=== PATIENT | female | born 1940 | race Caucasian/White ===

== ENCOUNTER 2018-01-14 02:08 | Outpatient (CLI) | payer MEDICARE, SELFPAY ==
[2018-01-14 11:34] LABS: ALT 18 U/L (12-78); AST 12 U/L (15-37); Albumin 3.8 g/dL (3.4-5.0); Alkaline Phosphatase 78 U/L (46-116); Anion Gap 8.4 mmol/L (3-11); BUN 42 mg/dL (7-18); Bilirubin, Total 0.4 mg/dL (0.2-1.0); CO2 29.6 mmol/L (21.0-32.0); CREATININE 1.97 mg/dL (0.55-1.02); Calcium 9.3 mg/dL (8.5-10.1); Chloride 104 mmol/L (98-107); Cholesterol 272 mg/dL (50-200); Estimated GFR 24.58 (mL/min/1.73m2); Glucose 96 mg/dL (70-100); HDL Cholesterol 96 mg/dL (40-60); LDL CHOLESTEROL 162 mg/dL (<100); Potassium 4.6 mmol/L (3.5-5.1); Sodium 142 mmol/L (136-145); Total Protein 7.1 g/dL (6.4-8.2); Triglyceride 51 mg/dL (30-150)
[2018-01-14 11:42] LABS: COMMENT (LAB VIEW ONLY) 42.44 mg/dL; Microalb ug/mg Crea 17.7 ug/mg Cr
[2018-01-14 12:06] LABS: PROTEIN < 6.0 mg/dL
[2018-01-14 12:07] LABS: COMMENT (LAB VIEW ONLY) 42.03 mg/dL
== END 2018-01-14 02:28 ==
PROVIDERS: PCP Nurse Practitioner Family; Visit Provider Nurse Practitioner Family
DX: I10 Essential (primary) hypertension (principal); N19 Unspecified kidney failure
CPT/HCPCS: 36415; 80053; 80061; 83721; 82043; 82565; 82570; 84156

== ENCOUNTER 2018-07-12 01:37 | Outpatient (CLI) | payer MEDICARE, OTHER, SELFPAY ==
[2018-07-12 11:24] LABS: ALT 18 U/L (12-78); AST 16 U/L (15-37); Albumin 3.8 g/dL (3.4-5.0); Alkaline Phosphatase 77 U/L (46-116); Anion Gap 12.1 mmol/L (3-11); BUN 42 mg/dL (7-18); Bilirubin, Total 0.4 mg/dL (0.2-1.0); CO2 24.9 mmol/L (21.0-32.0); Calcium 9.6 mg/dL (8.5-10.1); Chloride 106 mmol/L (98-107); Cholesterol 293 mg/dL (50-200); Estimated GFR 24.16 (mL/min/1.73m2); Glucose 106 mg/dL (70-100); HDL Cholesterol 96 mg/dL (40-60); LDL CHOLESTEROL 170 mg/dL (<100); Potassium 4.7 mmol/L (3.5-5.1); Sodium 143 mmol/L (136-145); TSH (W/Ref FT4) 2.69 uIU/mL (0.358-3.74); Total Protein 7.1 g/dL (6.4-8.2); Triglyceride 71 mg/dL (30-150)
== END 2018-07-12 01:57 ==
PROVIDERS: PCP Nurse Practitioner Family; Visit Provider Nurse Practitioner Family
DX: E03.9 Hypothyroidism, unspecified (principal); I10 Essential (primary) hypertension; E78.5 Hyperlipidemia, unspecified
CPT/HCPCS: 36415; 80053; 80061; 83721; 84443

== ENCOUNTER 2018-08-01 21:15 | Emergency (ER) | payer MEDICARE, OTHER, SELFPAY ==
[2018-08-01 21:18] VITALS: BP 143/37; PULSE 79; RESP 22; TEMP 36.7; O2SAT 100
--- NOTE | 2018-08-01 21:18 | DI.RAD_ITS ---
SYMPTOMS/DIAGNOSIS: FALL, LT SHOULDER PAIN, ? AC JOINT FX/DISLOCATION LEFT SHOULDER: Four views. There is a comminuted fracture of the proximal left humerus. The fracture appears to involve the surgical neck with extension into the greater tuberosity. There is impaction of the fracture. There is mild inferior subluxation of the humeral head relative to the glenoid. This may represent a hemarthrosis. Moderate hypertrophic changes are seen at the acromioclavicular joint. The soft tissues are unremarkable. IMPRESSION: Comminuted displaced impacted fracture involving the left humeral head.
[2018-08-01] MEDS: HYDROmorphone 2 MG TAB PO (21:55)
--- NOTE | 2018-08-01 22:56 | W.ED.GENAD ---
Discharge Plan Disposition Patient Disposition: HOME Condition: Good Discharge Details Chief Complaint: Orthopedic Clinical Impression: Fracture of head of humerus Primary Care Provider: Graeme Cannon ED Provider: Cm Garcia Home Meds and New Rx's Prescriptions: New hydromorphone [Dilaudid] 2 mg tablet 2 mg PO Q6H PRN (Reason: pain) Qty: 5 RF: 0 cyclobenzaprine 5 mg tablet 5 mg PO TID PRN (Reason: muscle spasm) Qty: 5 RF: 0 No Action ibuprofen [Advil] 200 MG tablet 200 mg PO PRNRF: 0 methylprednisolone 4 MG tablets,dose pack 4 mg PO DIRECTED Qty: 1 RF: 0 levothyroxine 25 MCG tablet 25 mcg PO DAILY RF: 0 torsemide 5 MG tablet 5 mg PO DAILY RF: 0 lisinopril 10 MG tablet 10 mg PO DAILY RF: 0 prednisone [Deltasone] 20 MG tablet 60 mg PO DAILY Qty: 6 RF: 0 allopurinol 100 mg Tablet 100 mg PO DAILY RF: 0 Discharge Instructions Instructions: Proximal Humerus Fracture (ED) Additional Instructions: Please take the pain medicine and the muscle relaxant only as absolutely needed. Do not take the Dilaudid and Flexeril together as this can cause too much mental unsteadiness. Please use the cuff and collar sling as directed, who is in ICU make sure to sit upright at 45 degrees to sleep, and support the arm with pillows. Please follow-up with orthopedic surgery immediately. We will put in a referral and they will contact you for the appointment date. If you notice any worsening of your symptoms, or any new symptoms such as vomiting, diarrhea, fever, chills, shortness of breath, chest pain, numbness, weakness, or fainting , please return immediately to the emergency department for reevaluation. Please follow up with your primary care provider as soon as possible for reassessment and reevaluation. As always, it was a pleasure participating in your medical care today. Referrals: Pasha Fletcher MD [ [facility] STAFF PHYSICIAN] - Jamar Melton MD [ [facility] STAFF PHYSICIAN] - Medical Decision Making This is a very pleasant 78-year-old female who does not take any blood thinners who fell secondary to a mechanical trip, landed on her left shoulder. Exam demonstrates evidence of a proximal humeral injury, no other trauma for her head neck chest abdomen or pelvis. She did not hit her head or lose consciousness. She demonstrates a normal neurovascular exam distal to the site of injury with brisk capillary refill, normal pulses and a normal neurovascular exam otherwise. Concern for proximal humeral fracture. We will get an x-ray, treat pain with oral medication, and reevaluate afterwards. 11:01 PM X-ray reveals evidence of a proximal humeral fracture. We are still waiting final x-ray read. I did contact Dr. Fletcher, and discussed the case with him, he recommends cuff and collar, and no coaptation splint at this time. We will refer for close orthopedic follow-up. With a normal neurovascular exam, and pain well controlled they feel she can be discharged with close orthopedic follow-up. Of note the patient states that she would like to specifically follow-up with Dr. Leigh or Dr. Melton. 11:05 PM X-ray formal read does demonstrate concern for comminuted component of the left humeral head with findings suggestive of left glenohumeral joint hemarthrosis. Patient continues to be neurovascularly intact and pain is controlled. We will place her in cuff and collar, with close follow. I have extensively reviewed the treatment plan and discharge instructions with the patient and their family. I have addressed all patient concerns at this time. The patient and family was made aware of what symptoms to monitor for that would warrant a return to the emergency department. Discussed the plan with the patient and family, they demonstrate verbal understanding and agreement with our assessment and plan at this time. COMPARISON: No relevant prior studies available. FINDINGS: Bones/joints: There is a mildly comminuted and displaced fracture of the left humeral head. Humeral head is mildly inferiorly subluxed relative to the glenoid, suggestive of a hemarthrosis. Alignment is otherwise within normal limits. There is moderate acromioclavicular joint arthrosis and facet arthrosis in the visualized cervical spine. Soft tissues: Unremarkable as seen. IMPRESSION: Comminuted and displaced left humeral head fracture, with findings suggestive of left glenohumeral joint hemarthrosis. Thank you for allowing us to participate in the care of your patient. Dictated and Authenticated by: Claude Ricketts MD HPI General Date/Time Provider Initiated Documentation: 08/01/18 21:18. HPI Narrative: This is a 78-year-old female with a past medical history of gout, thyroid disease, who takes no blood thinners, who presents today for evaluation of left arm pain. The patient states that 1-2 hours prior to arrival the patient had a mechanical fall, slipped and landed on her left shoulder. Notable pain on her left shoulder after the event, and she was unable to move. EMS was contacted, and then she was subsequently brought to the ER for further evaluation. She denies any numbness or tingling. She denies weakness at the shoulder but demonstrates denies any weakness at the elbow or wrist. She denies hitting her head, had no loss of consciousness, and her no other part of her body. Patient has no other complaints at this time. No other modifying factors. Of note the patient has had 2 previous knee replacements done by Dr. Fletcher. Related Data Home Medications Medication Instructions Recorded Confirmed ibuprofen [Advil] 200 mg PO PRN 12/04/12 12/04/12 methylprednisolone 4 mg PO DIRECTED #1 tab 12/04/12 08/01/18 levothyroxine 25 mcg PO DAILY 12/05/16 08/01/18 lisinopril 10 mg PO DAILY 12/05/16 08/01/18 prednisone [Deltasone] 60 mg PO DAILY #6 tablet 12/05/16 08/01/18 torsemide 5 mg PO DAILY 12/05/16 08/01/18 allopurinol 100 mg PO DAILY 08/01/18 08/01/18 cyclobenzaprine 5 mg PO TID PRN #5 tab 08/01/18 hydromorphone [Dilaudid] 2 mg PO Q6H PRN #5 tab 08/01/18 Previous Rx's Medication Instructions Recorded methylprednisolone 4 mg PO DIRECTED #1 tab 12/04/12 prednisone [Deltasone] 60 mg PO DAILY #6 tablet 12/05/16 cyclobenzaprine 5 mg PO TID PRN #5 tab 08/01/18 hydromorphone [Dilaudid] 2 mg PO Q6H PRN #5 tab 08/01/18 Allergies Allergy/AdvReac Type Severity Reaction Status Date / Time penicillamine Allergy Mild Skin Rash Unverified 08/01/18 21:43 acetaminophen [From Percocet] AdvReac Mild Nausea Unverified 08/01/18 21:43 oxycodone HCl [From Percocet] AdvReac Mild Nausea Unverified 08/01/18 21:43 Penicillins AdvReac Skin Rash Unverified 08/01/18 21:43 General Stated Complaint: Orthopedic BEN: 4 Review of Systems Review of Systems All systems reviewed & are unremarkable except as noted in HPI and below PFSH Social History Smoking/Tobacco Use Status: Former Tobacco Use Alcohol Intake: never Drug use: Never Do you feel safe in your relationship?: Yes Exam Narrative Exam Narrative: 1.Const: Well-nourished, Well-developed, appearing stated age 2.Eyes: PERRL, no conjunctival injection, and symmetrical lids. 3.ENT: Atraumatic external nose and ears. Moist MM. Neck: Symmetric, trachea midline, No thyromegaly. There is no evidence of raccoon eyes, crenshaw sign, CSF rhinorrhea, mastoid tenderness, cranial crepitus, hemotympanum, exophthalmos, or hyphema. Patient demonstrates intact dentition with no signs of tooth avulsion or fracture, no signs of jaw deformity, no evidence of a LeFort's fracture, with an intact palate, nose and orbital region. There is no evidence of a nasal septal hematoma. No proptosis. Jaw closes symmetrically. Airway is clear. 4.CVS: +S1/S2, No murmurs or gallops. Peripheral pulses 2+ and equal in all extremities. Brisk capillary refill in all extremities. 5.RESP: Unlabored respiratory effort. Clear to auscultation bilaterally. No wheezes rales or rhonchi 6.GI: Soft, Nontender/Nondistended, No hepatosplenomegaly. No guarding or rebound. 7.MSK: Normocephalic patient's extremities are all normal on exam except for her left upper extremity which demonstrates notable tenderness over her left shoulder, primarily near the head of the humerus. AC joint demonstrates minimal tenderness, no tenderness over the mid or distal shaft of the humerus. No elbow or forearm tenderness. Radial pulse +2 bilaterally, sensation intact throughout the hand distal to the injury including excellent two-point discrimination no other significant abnormalities on exam.. Normal flexion and extension of the elbow, as well as all movements of the wrist. Unable to move the left shoulder secondary to pain 8.Skin: Warm, Dry. No rashes or lesions. 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 Sensation grossly intact, no focal neurologic deficits. 10.Psych: (AAO) x3. Appropriate mood and affect Course Vital Signs Temperature 36.7 C 08/01/18 21:18 Pulse 79 08/01/18 21:18 Respiratory Rate 22 08/01/18 21:18 Blood Pressure 143/37 H 08/01/18 21:18 Pulse Oximetry 100 08/01/18 21:18 Temperature 36.7 C 08/01/18 21:18 Temperature Source Skin 08/01/18 21:18 Pulse 79 08/01/18 21:18 Respiratory Rate 22 08/01/18 21:18 Respiratory Effort 08/01/18 21:38 Blood Pressure 143/37 H 08/01/18 21:18 Blood Pressure Position Sitting 08/01/18 21:18 Pulse Oximetry 100 08/01/18 21:18 Oxygen Delivery Method Room Air 08/01/18 21:18 Oxygen Flow Rate 0 08/01/18 21:18 Pain Level 10 08/01/18 21:55
--- NOTE | 2018-08-01 22:59 | DI.VRAD_ITS ---
EXAM: XR Left Shoulder, Complete, 2 or More Views EXAM DATE/TIME: 08/01/2018 9:19 PM CLINICAL HISTORY: 78 years old, female; Injury or trauma; Fall; Initial encounter; Blunt trauma (contusions or hematomas; Shoulder; Left; Injury date: 08/01/18 TECHNIQUE: Imaging protocol: XR Left shoulder, complete 2 or more views. COMPARISON: No relevant prior studies available. FINDINGS: Bones/joints: There is a mildly comminuted and displaced fracture of the left humeral head. Humeral head is mildly inferiorly subluxed relative to the glenoid, suggestive of a hemarthrosis. Alignment is otherwise within normal limits. There is moderate acromioclavicular joint arthrosis and facet arthrosis in the visualized cervical spine. Soft tissues: Unremarkable as seen. IMPRESSION: Comminuted and displaced left humeral head fracture, with findings suggestive of left glenohumeral joint hemarthrosis. Dictated and Authenticated by: Claude Ricketts MD. Ordering:ADRIENNE Pabon MD
[2018-08-01] MEDS: HYDROmorphone 2 MG TAB (23:57)
--- NOTE | 2018-08-02 00:18 | NUR.NOTE ---
Nursing Note: made cuff and collar sling for the pt out of 4 inch stockinette
== END 2018-08-02 00:07 | disposition home or self-care (01) ==
PROVIDERS: Emergency Provider Student in an Organized Health Care Education/Training Program; PCP Nurse Practitioner Family
DX: S52.122A Displaced fracture of head of left radius, initial encounter for closed fracture (principal); W01.0XXA Fall on same level from slipping, tripping and stumbling without subsequent striking against object, initial encounter
CPT/HCPCS: 99283; 73030

== ENCOUNTER 2018-08-12 08:45 | Outpatient (CLI) | payer MEDICARE, OTHER, SELFPAY ==
--- NOTE | 2018-08-12 08:43 | DI.RAD_ITS ---
SYMPTOM/DIAGNOSIS: F/U FX LEFT SHOULDER: Two views were obtained and show previously described proximal humeral fracture with no gross interval change in alignment of the fracture fragments in comparison with examination of 08/01.
== END 2018-08-12 09:05 ==
PROVIDERS: PCP Nurse Practitioner Family; Referring Provider Nurse Practitioner Family; Visit Provider Orthopaedic Surgery
DX: S42.302A Unspecified fracture of shaft of humerus, left arm, initial encounter for closed fracture (principal); W01.0XXA Fall on same level from slipping, tripping and stumbling without subsequent striking against object, initial encounter
CPT/HCPCS: 99211; 99212; 73030

== ENCOUNTER 2018-08-30 10:00 | Outpatient (CLI) | payer MEDICARE, OTHER, SELFPAY ==
--- NOTE | 2018-08-30 10:50 | DI.RAD_ITS ---
SYMPTOM/DIAGNOSIS: F/U FX LEFT SHOULDER: Two views were obtained and show a previously described fracture of the proximal humerus with little interval change in alignment of the fracture fragments allowing for differences in projection in comparison with examination of 08/12/18.
== END 2018-08-30 10:20 ==
PROVIDERS: PCP Nurse Practitioner Family; Visit Provider Orthopaedic Surgery
DX: S42.122A Displaced fracture of acromial process, left shoulder, initial encounter for closed fracture (principal); X58.XXXA Exposure to other specified factors, initial encounter
CPT/HCPCS: 99211; 99212; 73030

== ENCOUNTER 2018-09-14 11:07 | Outpatient (CLI) | payer MEDICARE, OTHER, SELFPAY ==
--- NOTE | 2018-09-14 11:16 | DI.RAD_ITS ---
SYMPTOM/DIAGNOSIS: F/U FX LEFT SHOULDER: Comparison is made with 08/30/18. There has been no change in alignment of the comminuted proximal humeral fracture given differences in projection.
== END 2018-09-14 11:27 ==
PROVIDERS: PCP Nurse Practitioner Family; Referring Provider Nurse Practitioner Family; Visit Provider Orthopaedic Surgery
DX: S42.352D Displaced comminuted fracture of shaft of humerus, left arm, subsequent encounter for fracture with routine healing (principal); X58.XXXD Exposure to other specified factors, subsequent encounter
CPT/HCPCS: 99211; 99212; 73030

== ENCOUNTER 2018-10-04 10:22 | Outpatient (REF) | payer MEDICARE, OTHER, SELFPAY ==
[2018-10-04 19:09] LABS: HCT 33.5 % (36.0-46.0); HGB 10.5 g/dL (12.0-15.5); Mean Corp. HGB Concentration 31.3 g/dL (32.0-36.0); Mean Corpuscular Hemoglobin 30.7 pg (27.0-33.0); Mean Platelet Volume 11.3 fL (8.0-11.0); Platelet Count 192 x1000/uL (130-400); RBC 3.42 m/cumm (4.00-5.20); RBC Distribution Width 13.6 % (11.7-14.6)
[2018-10-04 19:27] LABS: Anion Gap 8.5 mmol/L (3-11); BUN 33 mg/dL (7-18); CO2 25.5 mmol/L (21.0-32.0); CREATININE 1.47 mg/dL (0.55-1.02); Calcium 8.1 mg/dL (8.5-10.1); Chloride 106 mmol/L (98-107); Estimated GFR 34.38 (mL/min/1.73m2); Glucose 104 mg/dL (70-100); Potassium 4.9 mmol/L (3.5-5.1); Sodium 140 mmol/L (136-145); TSH (W/Ref FT4) 2.46 uIU/mL (0.358-3.74); Uric Acid 6.5 mg/dL (2.6-6.0)
== END 2018-10-04 10:42 ==
LOC: NCHCN 10:22
PROVIDERS: PCP Nurse Practitioner Family; Visit Provider Nurse Practitioner Family
DX: M1A.9XX0 Chronic gout, unspecified, without tophus (tophi) (principal); R73.09 Other abnormal glucose; E03.9 Hypothyroidism, unspecified; N19 Unspecified kidney failure; I10 Essential (primary) hypertension
CPT/HCPCS: 80048; 85027; 84443; 84550

== ENCOUNTER → 2018-11-04 13:28 | Outpatient (BNVA) | payer MEDICARE, OTHER, SELFPAY | PROVIDERS: PCP Nurse Practitioner Family; Referring Provider Nurse Practitioner Family; Visit Provider Orthopaedic Surgery | DX: S52.122D Displaced fracture of head of left radius, subsequent encounter for closed fracture with routine healing (principal); S42.302D Unspecified fracture of shaft of humerus, left arm, subsequent encounter for fracture with routine healing; X58.XXXD Exposure to other specified factors, subsequent encounter | CPT/HCPCS: 99211; 99213 ==

== ENCOUNTER 2018-12-02 09:36 | Outpatient (REF) | payer MEDICARE, OTHER, SELFPAY ==
[2018-12-02 18:30] LABS: Anion Gap 11.2 mmol/L (3-11); BUN 59 mg/dL (7-18); CO2 23.8 mmol/L (21.0-32.0); CREATININE 1.89 mg/dL (0.55-1.02); Calcium 9.4 mg/dL (8.5-10.1); Chloride 106 mmol/L (98-107); Estimated GFR 25.72 (mL/min/1.73m2); Glucose 105 mg/dL (70-100); Potassium 5.1 mmol/L (3.5-5.1); Sodium 141 mmol/L (136-145); Uric Acid 5.1 mg/dL (2.6-6.0)
== END 2018-12-02 09:56 ==
LOC: NCHCN 09:36
PROVIDERS: PCP Nurse Practitioner Family; Visit Provider Nurse Practitioner Family
DX: M1A.9XX0 Chronic gout, unspecified, without tophus (tophi) (principal); N19 Unspecified kidney failure
CPT/HCPCS: 80048; 84550

== ENCOUNTER 2019-09-06 10:01 | Emergency (ER) | payer MEDICARE, OTHER, SELFPAY ==
[2019-09-06 10:08] VITALS: BP 167/75; PULSE 74; RESP 16; TEMP 36.6; O2SAT 96
--- NOTE | 2019-09-06 10:30 | DI.RAD_ITS ---
EXAM: XR RIBS LT W PA LAT CHEST CLINICAL HISTORY: fall 10 days ago TECHNIQUE: COMPARISON: CR XR shoulder LT complete 2+V from 09/14/2018 FINDINGS: PA view of the chest and two views of the left ribs were obtained. No gross rib fracture seen. No e vidence of pneumothorax or pleural effusion. Cardiac size is within normal limits. IMPRESSION: Negative examination of chest and ribs. Old healed left humeral head fracture noted.
--- NOTE | 2019-09-06 10:30 | DI.RAD_ITS ---
EXAM: XR HIP LT COMPLETE AP PELVIS CLINICAL HISTORY: fall 10 days ago TECHNIQUE: COMPARISON: No exams were available for comparison FINDINGS: Two views were obtained. There are moderate degenerative changes involving both hips, SI joints, and lower lumbar spine. There is no evidence of acute fracture or dislocation. IMPRESSION:
--- NOTE | 2019-09-06 10:36 | NUR.NOTE ---
pt to xray at this timeNursing Note:
--- NOTE | 2019-09-06 11:19 | W.ED.GENAD ---
Discharge Plan Disposition Patient Disposition: HOME Condition: Stable Discharge Details Chief Complaint: Chest/Rib Clinical Impression: Rib contusion, Groin strain Primary Care Provider: Graeme Cannon ED Provider: Quinn Cerda Home Meds and New Rx's Prescriptions: No Action levothyroxine 25 MCG tablet 25 mcg PO DAILY RF: 0 torsemide 5 MG tablet 5 mg PO DAILY RF: 0 lisinopril 10 MG tablet 10 mg PO DAILY RF: 0 prednisone [Deltasone] 20 MG tablet 60 mg PO DAILY Qty: 6 RF: 0 allopurinol 100 mg Tablet 200 mg PO DAILY RF: 0 Discharge Instructions Instructions: Groin Strain (ED), Rib Contusion (ED) Additional Instructions: X-ray of your chest, ribs, pelvis does not reveal any acute fracture. Gentle stretching as tolerated. Cool and/or warm compresses every 2 hours for 20 minutes. [id number] medication such as Tylenol as directed for discomfort. Please watch for new or worsening symptoms and return to the ER for any concerns. You recommend reaching out your primary care provider later today for prompt outpatient reevaluation Discharge Data Discharge Date/Time-TO BE ENTERED AT DEPARTURE: 09/06/19 11:40 Medical Decision Making 79-year-old female who fell secondary to a dog jumping on her 10 days ago presents for continuation of pain in her left ribs and left groin region however pain is progressively improving. She is not complaining of any shortness of breath. Denies any radiation of her pain. Denies striking her head, LOC, incontinence. She is able to bear weight is able to easily ambulate using a walker. Given her symptoms and duration of injury, likely contusion-soft tissue nature but will obtain x-ray of chest with left ribs and a pelvis X-ray of chest and left ribs as well as pelvis read by radiology as no acute bony abnormality. Discussed findings with patient. She is relieved and is requesting discharge. We discussed therapy such as Tylenol, gentle stretching, cool and/or warm compresses. Patient has no additional questions or concerns and is able to ambulate slowly but steadily upon discharge. Medical Records Medical records reviewed: Yes I reviewed the patient's medical records. Imaging Data Radiologic Study: Attestation: I personally reviewed and interpreted this imaging study as follows: Imaging: X-Ray My impression: Chest x-ray with left rib series negative as read by me, confirmed by radiology Radiologic Study #2: Attestation: I personally reviewed and interpreted this imaging study as follows: Imaging: X-Ray My impression: X-ray of pelvis read by me as negative. Radiology read as no acute pathology however arthritic changes present HPI General Mode of arrival: ambulatory. Date/Time Provider Initiated Documentation: 09/06/19 10:19. Limitations to Documentation: no limitations. Information obtained by: patient. HPI Narrative: This is a 79-year-old female with a history of thyroid disease, hypertension, reoccurring gout, presenting to the ER today status post fall 10 days ago. She reports that she was outside and a large dog knocked her over. She did not strike her head, no LOC. She is not anticoagulated. She admits to a left-sided chest wall discomfort and left groin discomfort that has gotten progressively better each day however given its still present, she decided to come to the ER to be sure that she does not have a hairline fracture. She denies headache, neck pain, visual changes, chest pain, shortness of breath, abdominal pain, nausea, vomiting, numbness, tingling, weakness. She does typically ambulate without an assistive device however she has been using her walker with the discomfort in her hip. Related Data Home Medications Medication Instructions Recorded Confirmed levothyroxine 25 mcg PO DAILY 12/05/16 09/06/19 lisinopril 10 mg PO DAILY 12/05/16 09/06/19 prednisone [Deltasone] 60 mg PO DAILY #6 tab 12/05/16 09/06/19 torsemide 5 mg PO DAILY 12/05/16 09/06/19 allopurinol 200 mg PO DAILY 08/01/18 09/06/19 Previous Rx's Medication Instructions Recorded prednisone [Deltasone] 60 mg PO DAILY #6 tab 12/05/16 Allergies Allergy/AdvReac Type Severity Reaction Status Date / Time penicillamine Allergy Mild Skin Rash Unverified 09/06/19 10:13 acetaminophen [From Percocet] AdvReac Mild Nausea Unverified 09/06/19 10:13 oxycodone HCl [From Percocet] AdvReac Mild Nausea Unverified 09/06/19 10:13 Penicillins AdvReac Skin Rash Unverified 09/06/19 10:13 General Stated Complaint: Chest/Rib BEN: 3 Review of Systems Constitutional Constitutional: Denies fatigue, Denies fever(s), Denies headache(s) and Denies weakness ENT Ears, Nose, Mouth, and Throat: Denies headache(s) Cardiovascular Cardiovascular: Denies chest pain and Denies dyspnea Respiratory Respiratory: Denies cough and Denies dyspnea Gastrointestinal Gastrointestinal: Denies abdominal pain, Denies nausea and Denies vomiting Genitourinary Genitourinary: Denies dysuria Musculoskeletal Musculoskeletal: Denies back pain, Denies numbness and Denies tingling Integumentary/Breasts Skin/Breast: Denies rash Neurologic Neurologic: Denies headache(s), Denies numbness, Denies tingling and Denies weakness Endocrine Endocrine: Denies fatigue [facility], [facility] Social History Smoking/Tobacco Use Status: Former Tobacco Use Alcohol Intake: never Drug use: Never Do you feel safe at home: Yes Do you feel safe in your relationship?: Yes Exam Const General: cooperative, healthy appearing, comfortable and no acute distress Orientation: alert, awake and oriented x3 HENMT Head: normal to inspection, normocephalic and atraumatic Mouth: moist mucous membranes Eyes General: appearance normal, both eyes and all related structures Alignment and Position: alignment normal Periorbital: periorbital findings normal Eyelids: eyelids normal Conjunctivae: conjunctivae normal Sclera: sclerae normal Cornea: corneas normal Pupils: PERRL EOM: EOM intact bilaterally Direct ophthalmoscopy: normal light reflex Neck Neck: normal visual inspection, full ROM, trachea midline, supple and nontender Chest Chest: normal inspection of the chest, abnormal palpation of chest wall, no crepitus and tenderness rib (Diffuse mild left anterior-lateral. No ecchymosis) Resp Effort & Inspection: normal respiratory effort and able to speak in complete sentences Auscultation: clear to auscultation bilaterally Cardio Rate: regular rate Rhythm: regular rhythm GI Palpation: soft, not firm, no guarding, not rigid and nontender Auscultation: normal bowel sounds Back/Spine/Pelvis Back: No back tenderness Skin General skin exam: no rashes or lesions noted Neuro General: patient alert, patient awake, patient oriented x3, moves all extremities and no focal motor deficits Cognition: normal cognition Speech: speech normal Gait: normal gait (Using a walker) Motor: muscle tone normal throughout and strength 5/5 throughout Sensory Exam: no sensory deficits noted Extrem General: normal to inspection, full ROM, capillary refill normal, pedal edema present and calf tenderness Left lower extremity: normal to inspection, full ROM, normal capillary refill and hip/thigh Details: normal to inspection and tenderness Location: of the hip Location: anteriorly (Into the groin) Psych Appearance: grossly normal Mental Status: mental status grossly normal Course Vital Signs Vital signs: Vital Signs Temperature 36.6 C 09/06/19 10:08 Pulse 74 09/06/19 10:08 Respiratory Rate 16 09/06/19 10:08 Blood Pressure 167/75 H 09/06/19 10:08 Pulse Oximetry 96 09/06/19 10:08 Temperature 36.6 C 09/06/19 10:08 Temperature Source Tympanic 09/06/19 10:08 Pulse 74 09/06/19 10:08 Respiratory Rate 16 09/06/19 10:08 Respiratory Effort 09/06/19 10:18 Respiratory Depth Normal 09/06/19 10:18 Blood Pressure 167/75 H 09/06/19 10:08 Blood Pressure Position Sitting 09/06/19 10:08 Pulse Oximetry 96 09/06/19 10:08 Oxygen Delivery Method Room Air 09/06/19 10:08 Oxygen Flow Rate 0 09/06/19 10:08 Pain Level 3 09/06/19 10:08
[2019-09-06 11:43] VITALS: BP 148/56; PULSE 77; RESP 18; O2SAT 99
== END 2019-09-06 11:40 | disposition home or self-care (01) ==
PROVIDERS: Emergency Provider Physician Assistant; PCP Nurse Practitioner Family
DX: S76.012A Strain of muscle, fascia and tendon of left hip, initial encounter (principal); S20.212A Contusion of left front wall of thorax, initial encounter; W54.1XXA Struck by dog, initial encounter; I10 Essential (primary) hypertension
CPT/HCPCS: 99284; 71046; 71100; 73502; 99283

== ENCOUNTER 2020-08-10 17:03 | Outpatient (REF) | payer MEDICARE, OTHER, SELFPAY ==
[2020-08-10 18:16] LABS: Hemoglobin A1C 5.6 % (<5.7)
[2020-08-10 18:29] LABS: TSH (W/Ref FT4) 1.37 uIU/mL (0.36-3.74)
== END 2020-08-10 17:04 | disposition home or self-care (01) ==
LOC: NCHCN 17:03
PROVIDERS: Visit Provider Nurse Practitioner Family
DX: R73.03 Prediabetes (principal); E03.9 Hypothyroidism, unspecified
CPT/HCPCS: 83036; 84443

== ENCOUNTER 2024-06-15 08:14 | Outpatient (CLI) | payer MEDICARE, SELFPAY ==
--- NOTE | 2024-06-15 08:00 | RT.EKG_ITS ---
APPROVED REPORT Exam: Resting ECG Reason for Exam: cardiac evaluation Patient Location: O HR:71 bpm ECG Measurements Heart Rate 71 AXIS MI 205 P 46 QRSd 148 QRS -81 QT 433 T 83 QTc 471 Conclusion Atrial-sensed ventricular-paced rhythm...ventricular pacing tracks p-waves No further analysis attempted due to paced rhythm
== END 2024-06-15 08:15 | disposition home or self-care (01) ==
LOC: DI.CARD 08:14
PROVIDERS: Visit Provider Student in an Organized Health Care Education/Training Program
DX: Z95.0 Presence of cardiac pacemaker (principal); I48.91 Unspecified atrial fibrillation
CPT/HCPCS: 93010

== ENCOUNTER → 2024-06-15 11:21 | Outpatient (BNVA) | payer MEDICARE, SELFPAY | PROVIDERS: Visit Provider Registered Nurse | DX: Z95.810 Presence of automatic (implantable) cardiac defibrillator (principal); I48.91 Unspecified atrial fibrillation | CPT/HCPCS: 93005; 93280; 99203 ==